=== PATIENT | male | born 1960 | race Caucasian/White ===

== ENCOUNTER 2018-06-06 11:28 | Day surgery (SDC) | payer BC ==
[2018-06-01 11:35] VITALS: BMI 38.3
[2018-06-06] MEDS ORDERED: PROPOFOL 20 ML ONE ×3 (12:02→12:45)
[2018-06-06 13:43] VITALS: TEMP 98
[2018-06-06 13:46] VITALS: BP 130/85; PULSE 88
--- NOTE | 2018-06-08 16:04 | PATH ---
Surgical Pathology Report Patient Name: SUZAN MCCALLUM [facility]. Rec. #: [id number] /Age/Gender: 1960 (Age: 57) / M Account: [id number] [facility] Taken: 06/06/2018 Received: 06/06/2018 Reported: 06/08/2018 Physicians: Favio Roman M.D. Specimen(s) Received SIGMOID POLYPS Clinical History Family history of polyps Postoperative diagnosis: Polyps, diverticulosis Final Diagnosis SIGMOID POLYPS, BIOPSY: TUBULAR ADENOMA. COLONIC MUCOSA SHOWING MILD SURFACE HYPERPLASTIC CHANGE. Electronically Signed Nessa Hughes M.D. Gross Description Received in formalin, labeled "sigmoid polyps" are 2 moss, irregular portions of soft tissue measuring 0.4 and 1.3 cm. in greatest dimension. The specimens are submitted in toto in one cassette. 06/07/201806/07/2018
== END 2018-06-06 13:47 | disposition home or self-care (01) ==
LOC: FASU-ENDO 11:28
PROVIDERS: ATTEND Internal Medicine Gastroenterology
PROC: 0DBN8ZX Excision of Sigmoid Colon, Via Natural or Artificial Opening Endoscopic, Diagnostic (ICD-10-PCS; principal; 2018-06-06 12:48)
DX: Z86.010 Personal history of colon polyps (principal); Z83.71 Family history of colonic polyps; K57.30 Diverticulosis of large intestine without perforation or abscess without bleeding; D12.5 Benign neoplasm of sigmoid colon
CPT/HCPCS: 88305-TC

== ENCOUNTER 2018-07-08 10:06 | Emergency (ER) | payer BC ==
[2018-07-08 10:12] VITALS: BMI 39.0
[2018-07-08] MEDS ORDERED: SODIUM CHLORIDE 1,000 ML IV ONE ×2 (10:14→12:08)
[2018-07-08] MEDS ORDERED: ONDANSETRON 4 MG/2 ML VIAL IVPB ONE (10:14)
[2018-07-08] MEDS ORDERED: ONDANSETRON 4 MG/2 ML VIAL ONE ×2 (10:16→14:53)
[2018-07-08] MEDS ORDERED: ACETAMINOPHEN 1000 MG/100 ML VIAL (NON FORMULARY) IVPB ONE (10:39)
[2018-07-08] MEDS ORDERED: ACETAMINOPHEN INJECTION 100 ML IVPB ONE (10:39)
[2018-07-08 10:43] LABS: BASO % 0.1 % (0-2.0); EOS % 3.7 % (0-4.5); HEMATOCRIT 49.5 % (35.4-49); HEMOGLOBIN 16.9 GM/dl (11.7-16.9); LYMPH % 7.6 % (8-40); MCH 30.9 pg (25.7-33.7); MCHC 34.2 g/dl (32.0-35.9); MEAN CELL VOLUME 90.5 fl (80-96); MONO % 14.3 % (3.8-10.2); NEUT % 74.3 % (42.8-82.8); PLATELET COUNT 148 K/MM3 (134-434); RBC 5.47 M/mm3 (4.00-5.60); RDW 12.6 % (11.9-15.9); WHITE BLOOD COUNT 5.6 K/mm3 (4.0-10.8)
--- NOTE | 2018-07-08 10:51 | PDOC ---
History of Present Illness - General Chief Complaint: Vomiting/Diarrhea Stated Complaint: VOMITING, DIARRHEA Time Seen by Provider: 07/08/18 10:14 History Source: Patient Exam Limitations: No Limitations - History of Present Illness Initial Comments: 07/08/18 10:50 58y M Hx of htn, renal ca s/p partial nephrectomy presnets for vomiting/ diarrhea and intermittent abd pain. Pt states he was well yesterday, had a dinner of crablegs and meatloaf last night and in the evening started having loose stool. pt had several episodes of loose watery stool (non bloody/non melanotic) and vomiting overnight (food contents, non bloody, no coffeegrounds) . Pt endorses intermittent epigastric pain when vomiting, but resolves after vomiting. pt went to his PMD (Dr. Reyna's) office and was sent to the ED for evaluation. He was noted to have a low grade fever and be mildly tachycardic to 119 at his office. pt ntose none of his family is sick otherwise. denies any recent travel, cp, sob, headache, palpitations Past History - Past Medical History Allergies/Adverse Reactions: Allergies Allergy/AdvReac Type Severity Reaction Status Date / Time codeine AdvReac Intermediate Nausea Verified 07/08/18 10:07 Home Medications: Ambulatory Orders Loratadine [Claritin] 5 mg PO DAILY PRN 06/01/13 Amlodipine Besylate [Norvasc -] 10 mg PO DAILY 06/01/18 Ondansetron [Zofran Odt -] 4 mg SL BID PRN #14 od.tablet 07/08/18 Anemia: No Asthma: No Cancer: Yes (kidney) Cardiac Disorders: No CVA: No COPD: No CHF: No Dementia: No Diabetes: No GI Disorders: No Disorders: No HTN: Yes Hypercholesterolemia: No Liver Disease: No Seizures: No Thyroid Disease: No Other medical history: seasonal/envtal allergies - Surgical History Abdominal Surgery: Yes (Left Partial Nephrectomy) Appendectomy: No Cardiac Surgery: No Cholecystectomy: No Lung Surgery: No Neurologic Surgery: No Orthopedic Surgery: No - Suicide/Smoking/Psychosocial Hx Smoking History: Never smoked Have you smoked in the past 12 months: No Number of Cigarettes Smoked Daily: 0 If you are a former smoker, when did you quit?: 1992 Information on smoking cessation initiated: No Hx Alcohol Use: No Drug/Substance Use Hx: No Substance Use Type: None Hx Substance Use Treatment: No Review of Systems - Review of Systems Able to Perform ROS?: Yes Comments:: 07/08/18 10:57 Constitutional - no reported Fever, Chills, HEENT: no reported vision changes, sore throat Respiratory: no reported cough, sob, hemoptysis Cardiac: no reported chest pain, palpitations, light headedness, leg swelling Abd/GI: +abd pain, nausea, vomiting, diarrhea no reported blood per rectum, melena, : no reported dysuria, frequency, discharge Musculskelatal - no reported back pain, joint swelling skin - no reported bruising, erythema, rash neurological: no reported headache, numbness, focal weakness, tingling, ataxia, hematologic: no reported easy bruising, easy bleeding *Physical Exam - Vital Signs Last Vital Signs Temp Pulse Resp BP Pulse Ox 98.6 F 119 H 20 130/81 98 07/08/18 10:06 07/08/18 10:06 07/08/18 10:06 07/08/18 10:06 07/08/18 10:06 - Physical Exam Comments: 07/08/18 10:57 GENERAL: The patient is awake, alert, and fully oriented, Nontoxic - in no acute distress. HEAD: Normocephalic, atraumatic. EYES: extraocular movements intact, sclera anicteric, conjunctiva clear. ENT: Normal voice, Moist mucous membranes. NECK: Normal range of motion, supple LUNGS: Breath sounds equal, clear to auscultation bilaterally. No wheezes, no rhonchi, no rales. HEART: tachcyardic, normal S1 and S2 without murmur, rub or gallop. ABDOMEN: Soft, nontender, neg murphies, no ttp at mcburneys pt. No guarding, no rebound. No CVA tenderness EXTREMITIES: Normal range of motion, trace edema. no calf tenderness NEUROLOGICAL: No facial assymetry, Normal speech, moving all 4 exterities spontaneously and symmeticaly PSYCH: Normal mood, normal affect. SKIN: Warm, Dry, normal turgor, 07/08/18 10:59 Moderate Sedation - Procedure Monitoring Vital Signs: Procedure Monitoring Vital Signs Temperature 98.6 F 07/08/18 10:06 Pulse Rate 119 H 07/08/18 10:06 Respiratory Rate 20 07/08/18 10:06 Blood Pressure 130/81 07/08/18 10:06 O2 Sat by Pulse Oximetry (%) 98 07/08/18 10:06 Heart Score/ECG Review - ECG Impressions Comment:: 07/08/18 10:58 Twelve-lead EKG was performed and reviewed by me. There is normal sinus rhythm with a heart rate of 110 left axis deviation The intervals are normal. There is normal R wave progression Nonspecific ST wave changes ED Treatment Course - LABORATORY CBC & Chemistry Diagram: 07/08/18 10:31 07/08/18 10:31 - Medications Given in the ED: ED Medications Discontinued Medications Generic Name Dose Route Start Last Admin Trade Name Freq PRN Reason Stop Dose Admin Acetaminophen 1,000 mg 07/08/18 10:39 07/08/18 10:30 Ofirmev Injection - IVPB 07/08/18 10:40 1,000 mg ONCE ONE Administration Ondansetron HCl 4 mg 07/08/18 10:14 07/08/18 10:35 Zofran Injection IVPB 07/08/18 10:15 4 mg ONCE ONE Administration Medical Decision Making - Medical Decision Making 07/08/18 10:59 Suspect acute gastroenteritis, no focal tenderness to suggest acute peritonitis tachycardic, low grade fever will give tylenol, fluilds, zofarn for symptmatic relief will ck ekg to screen for arrhtmia will send labs, lipase to r/o metabolic dernagement, panceratitis will reassess 07/08/18 11:40 labs reviewed pt felels improved will reassess and PO challenge no abd tenderness on reexamination 07/08/18 12:10 LA at 2.6 will give another liter of NS and recheck LA 07/08/18 15:05 repeat LA at 1.8 pt feels better, no abd pain, abd soft nontender requesting to go home repeat HR went up to 109 with temp of 99.7 - suspect may be driven from fever will give motrin and recheck his HR prior to dc 07/08/18 16:19 HR improved to 96 pt feling well will dc with supportive care return precatautions were discussed *DC/Admit/Observation/Transfer Diagnosis at time of Disposition: Gastroenteritis - Discharge Dispostion Disposition: HOME Condition at time of disposition: Improved Decision to Admit order: No - Prescriptions Prescriptions: Ondansetron [Zofran Odt -] 4 mg SL BID PRN #14 od.tablet PRN Reason: Nausea - Referrals Referrals: Clara Mora MD [Primary Care Provider] - - Patient Instructions Printed Discharge Instructions: DI for Viral Gastroenteritis -- Adult Additional Instructions: Return to the emergency department immediately with ANY new, persistent or worsening symptoms including worsening abdominal pain, fevers, inability to tolerate oral intake, chest pain, shortness of breath or any other concerns. Clear liquids only for the next 6 hours.. After that if you have had no further vomiting you may have bananas, rice, applesauce, or toast. If no further vomiting for another 8 hours you may have regular food. If you vomit again then nothing to eat or drink for 2 hours. Take one of the ondansatrone. Then start back with the clear liquids. Return to the emergency department immediately with ANY new, persistent or worsening symptoms. You MUST call and follow up with your doctor in 3 days if not better. Your emergency department visit is not complete without a followup with your doctor for reevaluation. Please make sure your doctor reviews the results of your emergency evaluation Print Language: SETSWANA - Post Discharge Activity
[2018-07-08 11:01] LABS: ALBUMIN 4.2 g/dl (3.5-5.0); ALK PHOS 57 U/L (32-92); ANION GAP 8 MMOL/L (8-16); BILIRUBIN,TOTAL 1.3 mg/dl (0.2-1.0); BLOOD UREA NITROGEN 25 mg/dl (7-18); CALCIUM 8.3 mg/dl (8.4-10.2); CHLORIDE 101 mmol/L (98-107); CO2 24 mmol/L (22-28); CREATININE 1.1 mg/dl (0.6-1.3); GLUCOSE,RANDOM 156 mg/dl (74-106); POTASSIUM 4.4 mmol/L (3.5-5.1); SGOT/AST 31 U/L (10-42); SGPT/ALT 39 U/L (10-40); SODIUM 133 mmol/L (136-145); TOT PROT 7.2 g/dl (6.4-8.3)
[2018-07-08 11:31] LABS: LIPASE 135 U/L (73-393)
[2018-07-08] MEDS ORDERED: IBUPROFEN 400 MG TABLET (FP) PO ONE (14:50)
[2018-07-08] MEDS ORDERED: ONDANSETRON 4 MG/2 ML VIAL IVPUSH ONE (14:50)
[2018-07-08] MEDS ORDERED: IBUPROFEN 600 MG TABLET (FP) PO ONE (14:53)
[2018-07-08 15:04] LABS: URINE APPEARANCE Clear; URINE BILIRUBIN Negative (NEGATIVE); URINE COLOR Amber; URINE GLUCOSE (UA) Negative (NEGATIVE); URINE KETONE Negative (NEGATIVE); URINE LEUK ESTERASE Negative (NEGATIVE); URINE NITRITE Negative (NEGATIVE); URINE PROTEIN Negative (NEGATIVE)
[2018-07-08] MEDS ORDERED: SODIUM CHLORIDE 500 ML IV STA (15:19)
[2018-07-08 16:20] VITALS: BP 118/65; PULSE 100; TEMP 99
--- NOTE | 2018-07-08 20:16 | EKG ---
Test Reason : Blood Pressure : / mmHG Vent. Rate : 110 BPM Atrial Rate : 110 BPM P-R Int : 154 ms QRS Dur : 078 ms QT Int : 318 ms P-R-T Axes : 048 -32 052 degrees QTc Int : 430 ms SINUS TACHYCARDIA LEFT AXIS DEVIATION NONSPECIFIC T WAVE ABNORMALITY ABNORMAL ECG NO PREVIOUS ECGS AVAILABLE Confirmed by OMAIRA PIKE, BIANKA ([id number]) on 07/08/2018 8:16:18 PM Referred By: CHANDANA ESCUDERO Confirmed By:BIANKA CASTANO MD
== END 2018-07-08 16:00 | disposition home or self-care (01) ==
LOC: FER 10:06
PROC: 3E033NZ Introduction of Analgesics, Hypnotics, Sedatives into Peripheral Vein, Percutaneous Approach (ICD-10-PCS; principal; 2018-07-08)
PROC: 3E033GC Introduction of Other Therapeutic Substance into Peripheral Vein, Percutaneous Approach (ICD-10-PCS; 2018-07-08)
PROC: 3E0337Z Introduction of Electrolytic and Water Balance Substance into Peripheral Vein, Percutaneous Approach (ICD-10-PCS; 2018-07-08)
DX: K52.9 Noninfective gastroenteritis and colitis, unspecified (principal); I10 Essential (primary) hypertension; J30.2 Other seasonal allergic rhinitis; Z87.891 Personal history of nicotine dependence; Z85.528 Personal history of other malignant neoplasm of kidney
CPT/HCPCS: 36415; 80053; 81003; 83605; 83690; 85025; 93005; 99285-25; J0131; J7030

== ENCOUNTER 2019-03-21 17:58 | Emergency (ER) | payer BC ==
--- NOTE | 2019-03-21 18:01 | PDOC ---
History of Present Illness - General Chief Complaint: CVA/TIA Stated Complaint: rigth face numbness for a few days. Time Seen by Provider: 03/21/19 18:01 History Source: Patient Exam Limitations: No Limitations - History of Present Illness Initial Comments: 03/21/19 18:06 Hal Vazquez is a 58yM w PMHx HTN, renal CA s/p partial nephrectomy, armas's palsy (2017) presenting w intermittent R face numbness. Intermittent episodes of R facial numbness and tongue swelling for last 3 days. Took benadryl which partially relieves symptoms. Does not have trouble eating/breathing/or talking with tongue swelling. Denies focal strength deficits. Was treated with steroids for Armas's palsy 2 years ago. Told it may be due to Lyme. Has lingering R facial numbness and R eye tearing that exacerbated over last few days. In ED only endorsing tongue swelling. Denies fever, headache, SOB, chest/AB pain, urinary/bowel movement changes. Does not have neurologist. Past History - Past Medical History Allergies/Adverse Reactions: Allergies Allergy/AdvReac Type Severity Reaction Status Date / Time codeine AdvReac Intermediate Nausea Verified 03/21/19 17:59 Home Medications: Ambulatory Orders Loratadine [Claritin] 5 mg PO DAILY PRN 06/01/13 Anemia: No Asthma: No Cancer: Yes (kidney) Cardiac Disorders: No CVA: No COPD: No CHF: No Dementia: No Diabetes: No GI Disorders: No Disorders: No HTN: Yes Hypercholesterolemia: No Liver Disease: No Seizures: No Thyroid Disease: No - Surgical History Abdominal Surgery: Yes (Left Partial Nephrectomy) Appendectomy: No Cardiac Surgery: No Cholecystectomy: No Lung Surgery: No Neurologic Surgery: No Orthopedic Surgery: No - Psycho Social/Smoking Cessation Hx Smoking History: Never smoked Have you smoked in the past 12 months: No Number of Cigarettes Smoked Daily: 0 If you are a former smoker, when did you quit?: 1992 Hx Alcohol Use: No Drug/Substance Use Hx: No Substance Use Type: None Hx Substance Use Treatment: No Review of Systems - Review of Systems Constitutional: No: Chills, Fever HEENTM: No: Eye Pain, Nose Pain, Throat Pain, Mouth Pain Respiratory: No: Cough, Shortness of Breath Cardiac (ROS): No: Chest Pain, Palpitations, Syncope ABD/GI: No: Abdominal Distended, Constipated, Diarrhea, Nausea, Vomiting : No: Burning, Dysuria, Discharge, Frequency, Flank Pain, Hematuria Musculoskeletal: No: Back Pain, Joint Pain, Joint Swelling, Muscle Pain Integumentary: No: Bruising, Dryness, Erythema Neurological: Yes: Numbness (R face numbness). No: Headache, Seizure, Tingling , Weakness Psychiatric: No: Anxiety, Depression, Stressors Endocrine: No: Excessive Sweating, Flushing, Intolerance to Cold, Intolerance to Heat Hematologic/Lymphatic: No: Anemia, Blood Clots, Easy Bleeding *Physical Exam - Physical Exam General Appearance: Yes: Nourished, Appropriately Dressed. No: Apparent Distress HEENT: positive: EOMI, SOULEYMANE, Normal Voice (speaking full sentences comfortably without slurring), Hearing Grossly Normal, Other (no gross tongue swelling, can visualize posterior pharynx). negative: Scleral Icterus (R), Scleral Icterus (L ), Nasal Congestion, Rhinorrhea Respiratory/Chest: positive: Lungs Clear, Normal Breath Sounds. negative: Chest Tender, Respiratory Distress, Crackles, Rales, Rhonchi, Stridor, Wheezing Cardiovascular: positive: Regular Rhythm, Regular Rate, S1, S2. 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 negative: Facial Droop, Numbness, Sensory Deficit, Confused, Disoriented Medical Decision Making - Medical Decision Making 03/21/19 18:51 Lyme total AB w reflex Hal Vazquez is a 58yM w PMHx HTN, renal CA s/p partial nephrectomy, armas's palsy (2017) presenting w intermittent R face numbness likely an exacerbation of Armas's palsy. Neuro intact, NIHSS stroke scale 0, no facial numbness or gross tongue swelling. Pt talking comfortably in full sentences, sat well on room air. Lyme test sent. D/c with neuro referral for facial numbness, mill oiler referral for eczema Discharge - Discharge Information Problems reviewed: Yes Clinical Impression/Diagnosis: Armas's palsy Eczema Qualifiers: Eczema type: unspecified Qualified Code(s): L30.9 - Dermatitis, unspecified Condition: Good Disposition: HOME - Admission No - Follow up/Referral Referrals: Vitaly Winston MD [Staff Physician] - Ra Callahan MD [Staff Physician] - - Patient Discharge Instructions Patient Printed Discharge Instructions: DI for Armas's Palsy, DI for Atopic Dermatitis - Adult Additional Instructions: You were seen for right facial numbness and tongue swelling. You do not have evidence of a stroke Please follow up with the referred neurologist Dr Winston regarding your numbness and Dr. Callahan ENT/mill oiler for your eczema. You will be contacted if your Lyme result comes back abnormal. Come back to the ED if you have new facial numbness, trouble breathing, or vision changes. - Post Discharge Activity
[2019-03-21 18:08] VITALS: BP 143/100; PULSE 98; TEMP 98.5; BMI 38.3
--- NOTE | 2019-03-21 19:01 | PDOC ---
Attending Attestation - Resident Resident Name: ThanhPedrito - ED Attending Attestation I have performed the following: I have examined & evaluated the patient, The case was reviewed & discussed with the resident, I agree w/resident's findings & plan, Exceptions are as noted - HPI HPI: 03/21/19 18:58 58 years old past medical history significant for Armas's palsy to the right side of his face with residual right sided paresthesias and changes in tongue sensorium symptoms normally wax and wane patient has noted that over the last week or so he has noted increasing paresthesias to the side of his face he has taken Benadryl for this which has helped with his symptoms but when the Benadryl wears off the symptoms seem to return recently pateint has had surgery for a tooth abscess as well as recent steroid course for eczema no other new neurologic symptoms Symptoms are mild, come and go are similar to previous with no new findings. - Physicial Exam PE: 03/21/19 18:59 Vitals: Triage Vital signs reviewed General Appearance: no acute distress, well nourished well developed, Head: Atraumatic, Eyes: Pupils equal reactive round, extraocular movement intact Ears: TM's normal bilaterally; Nose: Nares patent bilaterally;no nasal congestion Throat: Posterior oropharynx without erythema, mucous membranes moist, Neck: Supple;No Nucal rigidity Chest Wall: Nontender Cardiac: Regular rate and rhythym, no murmurs, no rubs, no gallops, Lungs: Clear to auscultation bilateral, good air movement bilaterally, Abdomen: Soft, non distended, normal bowel sounds, non tender to palpation Extremities: Full range of motion to all extremities, no cyanosis, clubbing, or edema Skin: Warm and dry, no rashes or lesions, no rash, no petechiae Neuro: AOX3; Cranial Nerves 2-12 grossly intact, Strength intact to all extremities, Sensation intact to all extremities,gait normal Psych: normal mood, normal affect - Medical Decision Making 03/21/19 19:00 Well-appearing no apparent distress with likely exacerbation of patient's chronic paresthesias secondary to remote Ailey palsy Patient was concerned with the changes over the last few weeks and came to the emergency department. His neurologic examination is nonfocal his symptomatology appears chronic he has a cousin's who is a neurologist who he will follow-up with recommend continuing Benadryl 1 week neurology follow-up we will send a Lyme screen per the patient's request Findings, need for follow-up and strict return instructions discussed patient. 03/23/19 09:58
== END 2019-03-21 19:28 | disposition home or self-care (01) ==
LOC: FER 17:58
DX: G51.0 Bell's palsy (principal); L30.9 Dermatitis, unspecified; I10 Essential (primary) hypertension; Z85.528 Personal history of other malignant neoplasm of kidney; Z90.5 Acquired absence of kidney; Z88.6 Allergy status to analgesic agent
CPT/HCPCS: 36415; 86618; 99282-25

== ENCOUNTER 2021-10-20 09:03 | Day surgery (SDC) | payer BC ==
[2021-10-16 14:12] VITALS: BMI 39.0
[2021-10-20 10:51] VITALS: TEMP 98.1
[2021-10-20 11:04] VITALS: BP 116/61; PULSE 75
== END 2021-10-20 11:24 | disposition home or self-care (01) ==
LOC: FASU-ENDO 09:03
PROVIDERS: ATTEND Internal Medicine Gastroenterology
PROC: 0DJD8ZZ Inspection of Lower Intestinal Tract, Via Natural or Artificial Opening Endoscopic (ICD-10-PCS; principal; 2021-10-20 10:23)
DX: Z86.010 Personal history of colon polyps (principal); K57.30 Diverticulosis of large intestine without perforation or abscess without bleeding

== ENCOUNTER 2022-06-14 09:35 | Emergency (ER) | payer BC ==
[2022-06-14 10:03] VITALS: BP 158/93; PULSE 64; RESP 18; TEMP 97.8; BMI 39.7
== END 2022-06-14 11:41 | disposition home or self-care (01) ==
LOC: FER 09:35
DX: G51.0 Bell's palsy (principal)
CPT/HCPCS: 70450-TC; 99284-25